=== PATIENT | male | born 1970 | race Caucasian/White ===

== ENCOUNTER 2017-01-03 08:08 | Day surgery (SDC) | payer OTHER ==
[~2017-01-03] VITALS: Ht 175.3 cm; Wt 75.7 kg
[2017-01-03] VITALS (7 sets, daily range): BP systolic 100–126; BP diastolic 50–72
[2017-01-03 09:04] LABS: HEMATOCRIT 38.8 % (38.0-50.0); MCH 30.5 PG (29.0-34.0); MCHC 34.8 G/DL (30.0-36.0); MCV 87.6 FL (86-99); MEAN PLAT.VOLUME 9.7 uM^3 (9.0-12.4); PLATELET COUNT 251 K/uL (156-360); RBC DIS.WIDTH-CV 13.3 % (11.8-14.6); RBC DIS.WIDTH-SD 41.4 % (39-53); RED BLOOD COUNT 4.43 M/uL (4.00-5.50); WHITE BLOOD COUNT 13.7 K/uL (4.1-10.2)
[2017-01-03 09:51] LABS: ANION GAP 7 MEQ/L (2-14); CHLORIDE 105 MEQ/L (99-109); POTASSIUM 4.1 MEQ/L (3.7-5.4); SAMPLE HEMOLYSIS CHECK 0; SAMPLE ICTERIC CHECK 0; SAMPLE LIPEMIA CHECK 0; SODIUM 137 MEQ/L (136-147); TOTAL BILIRUBIN 0.6 MG/DL (0.0-1.0)
[2017-01-03 09:57] LABS: ALKALINE PHOSPHATASE 46 IU/L (3-129); GFR ESTIMATE (CALCULATED) > 59 mL/min/; GLUCOSE 137 mg/dL (70-99); UREA NITROGEN (BUN) 16 mg/dL (9-23)
[2017-01-03] MEDS ORDERED: MOTRIN IB200 MG PO (10:41)
[2017-01-03] MEDS ORDERED: DAILY VALUE1 EACH PO (10:42)
[2017-01-04 03:30] VITALS: BP 119/56
[2017-01-04 08:02] VITALS: BP 105/52
[2017-01-04 08:16] LABS: HEMATOCRIT 35.8 % (38.0-50.0); MCH 29.3 PG (29.0-34.0); MCHC 32.7 G/DL (30.0-36.0); MCV 89.5 FL (86-99); MEAN PLAT.VOLUME 10.1 uM^3 (9.0-12.4); PLATELET COUNT 216 K/uL (156-360); RBC DIS.WIDTH-CV 13.9 % (11.8-14.6); RBC DIS.WIDTH-SD 45.8 % (39-53); WHITE BLOOD COUNT 10.5 K/uL (4.1-10.2)
== END 2017-01-04 14:20 | disposition home or self-care (01) ==
LOC: EME 08:08 → SDC 12:02 → EME 12:02 → 2SOUTH 13:21 → 2EAST 20:51
PROVIDERS: Surgery
PROC: 0DTJ4ZZ Resection of Appendix, Percutaneous Endoscopic Approach (ICD-10-PCS; principal; 2017-01-03)
DX: K35.80 Unspecified acute appendicitis (principal)
CPT/HCPCS: 74176; 80053; 81003; 85027; 88304; 94799; 99281; 99285; G0378; J0330; J1170; J1335; J1885; J2250; J2300; J2405; J2710; J3010; J7030; J7120